=== PATIENT | female | born 2005 | race American Indian/Alaskan Native ===

== ENCOUNTER 2024-12-15 11:56 | Emergency (ER) | payer OTHER ==
[2024-12-15 12:06] VITALS: BP 111/70; PULSE 77; RESP 18; TEMP 98.2; BMI 29.8
[2024-12-15] MEDS ORDERED: ACETAMINOPHEN 325 MG TABLET (FP) ONE (13:17)
[2024-12-15] MEDS: ACETAMINOPHEN 325 MG TABLET (FP) PO ONE (13:23)
== END 2024-12-15 13:51 | disposition home or self-care (01) ==
LOC: JERFT 11:56
DX: O99.891 Other specified diseases and conditions complicating pregnancy (principal); H66.93 Otitis media, unspecified, bilateral; H92.03 Otalgia, bilateral; R13.10 Dysphagia, unspecified; O99.512 Diseases of the respiratory system complicating pregnancy, second trimester; J02.0 Streptococcal pharyngitis; Z3A.00 Weeks of gestation of pregnancy not specified
CPT/HCPCS: 87651; 99283-25

== ENCOUNTER 2025-03-06 08:00 | Inpatient (IN) | payer OTHER ==
[2025-03-06 14:57] VITALS: BMI 31.1
[2025-03-06 15:23] LABS: ABSOLUTE IMMATURE GRANULOCYTES 0.03 x10^3/uL (0.0-0.031); BASOPHILS # 0.01 x10^3/uL (0.01-0.08); EOSINOPHIL % 0.4 % (0.7-5.8); EOSINOPHILS # 0.03 x10^3/uL (0.04-0.36); MCHC 32.1 g/dl (32.2-35.5); MEAN CELL VOLUME 89.0 fl (79.4-94.8); MEAN PLT VOLUME 11.1 fl (9.4-12.3); MONOCYTE # 0.48 x10^3/uL (0.24-0.86); MONOCYTE % 5.9 % (4.7-12.5); RDW 13.2 % (12.0-16.2)
[2025-03-06 15:32] LABS: INR 0.93 (0.83-1.09); PROTHROMBIN TIME (PATIENT) 10.2 SEC (9.7-13.0)
[2025-03-06 15:34] LABS: ACTIVATED PTT 30.6 SECONDS (25.2-36.5)
[2025-03-06 15:43] LABS: CO2 21.0 mmol/L (21-32); GLUCOSE,RANDOM 78.0 mg/dL (74-106)
[2025-03-06 15:46] LABS: CREATININE 0.6 mg/dL (0.55-1.3)
[2025-03-06] MEDS ORDERED: METHYLERGONOVINE MALEATE 0.2 MG/1 ML AMP IM PRN (16:18)
[2025-03-06] MEDS: ELECTROLYTE-148 SOLN 1,000 ML IV SCH (16:24)
[2025-03-06] MEDS ORDERED: OXYTOCIN 30 UNITS in 0.9% NS 30 UNIT/500 ML INFUS.BAG IVPB ONE (16:35)
[2025-03-06] MEDS ORDERED: morphine SULFATE/PF 1 MG/2 ML (2cc Syringe - QUVA) ONE (16:38)
[2025-03-06] MEDS ORDERED: FENTANYL CITRATE/PF 50 MCG/ML VIAL ONE (16:38)
[2025-03-06] MEDS ORDERED: ACETAMINOPHEN 325 MG TABLET (FP) PO PRN (16:53)
[2025-03-06] MEDS ORDERED: ONDANSETRON 4 MG/2 ML VIAL IVPUSH PRN (16:53)
[2025-03-06] MEDS ORDERED: ONDANSETRON 4 MG/2 ML VIAL ONE (17:40)
[2025-03-06 18:08] LABS: HIV INTERPRETATION NEGATIVE (NEGATIVE)
[2025-03-06] MEDS ORDERED: OXYTOCIN 20 UNITS in 0.9% NS 20 UNIT/1,000 ML INFUS.BAG IV ONE (18:18)
[2025-03-06] MEDS ORDERED: ACETAMINOPHEN INJECTION 100 ML ONE (18:22)
[2025-03-06] MEDS: ACETAMINOPHEN 1000 MG/100 ML BAG IVPB ONE (18:30)
[2025-03-06 18:33] LABS: CORD BASE EXCESS -3.9 mmol/L (0-2); CORD HCO3 22.2 mmHg (20-29); CORD PCO2 44.2 mmHg (30-78); CORD pH 7.319 (7.14-7.44)
[2025-03-06 18:34] LABS: CORD BASE EXCESS -5.7 mmol/L (0-2); CORD HCO3 21.2 mmHg (20-29); CORD PCO2 46.5 mmHg (30-78); CORD pH 7.277 (7.14-7.44)
[2025-03-06] MEDS: OXYTOCIN 20 UNITS in 0.9% NS 20 UNIT/1,000 ML INFUS.BAG IV SCH (19:00)
[2025-03-06] MEDS: IBUPROFEN 600 MG TABLET (FP) PO PRN (23:33)
[2025-03-07] MEDS: IBUPROFEN 600 MG TABLET (FP) PO PRN (04:45)
[2025-03-07] MEDS: KETOROLAC TROMETHAMINE 30 MG/1 ML VIAL IVPUSH ONE (06:46)
[2025-03-07 06:47] LABS: ABSOLUTE IMMATURE GRANULOCYTES 0.04 x10^3/uL (0.0-0.031); BASOPHILS # 0.01 x10^3/uL (0.01-0.08); EOSINOPHIL % 0.5 % (0.7-5.8); EOSINOPHILS # 0.04 x10^3/uL (0.04-0.36); MCHC 31.8 g/dl (32.2-35.5); MEAN CELL VOLUME 90.1 fl (79.4-94.8); MEAN PLT VOLUME 10.8 fl (9.4-12.3); MONOCYTE # 0.60 x10^3/uL (0.24-0.86); MONOCYTE % 6.9 % (4.7-12.5); RDW 13.2 % (12.0-16.2)
[2025-03-07] MEDS: ACETAMINOPHEN 325 MG TABLET (FP) PO PRN (09:06)
[2025-03-07] MEDS ORDERED: BISACODYL 10 MG SUPP.RECT RC PRN (16:22)
[2025-03-07] MEDS: SIMETHICONE 80 MG TAB.CHEW (FP) PO PRN (16:53)
[2025-03-08] MEDS: PRENATAL VITAMINS W/ FOLIC ACID TABLET (FP) PO SCH (10:40)
[2025-03-09 07:30] LABS: ABSOLUTE IMMATURE GRANULOCYTES 0.02 x10^3/uL (0.0-0.031); BASOPHILS # 0.03 x10^3/uL (0.01-0.08); EOSINOPHIL % 2.0 % (0.7-5.8); EOSINOPHILS # 0.12 x10^3/uL (0.04-0.36); MCHC 31.8 g/dl (32.2-35.5); MEAN CELL VOLUME 88.9 fl (79.4-94.8); MEAN PLT VOLUME 10.2 fl (9.4-12.3); MONOCYTE # 0.50 x10^3/uL (0.24-0.86); MONOCYTE % 8.2 % (4.7-12.5); RDW 13.2 % (12.0-16.2)
[2025-03-09 18:23] VITALS: BP 104/78; PULSE 69; RESP 17; TEMP 98.1
== END 2025-03-09 13:45 | disposition home or self-care (01) | DRG 540 ==
LOC: JLDR 14:13 → J3W 20:20
PROVIDERS: ADMIT Obstetrics & Gynecology; ATTEND Obstetrics & Gynecology
PROC: 10D00Z1 Extraction of Products of Conception, Low, Open Approach (ICD-10-PCS; principal; 2025-03-06)
DX: O32.1XX0 Maternal care for breech presentation, not applicable or unspecified (principal); Z3A.39 39 weeks gestation of pregnancy; Z37.0 Single live birth
CPT/HCPCS: 36415; 36600; 80048; 82803; 85025; 85610; 85730; 86780; 86850; 86900; 86901; 87389; 88307-TC